=== PATIENT | male | born 1990 | race Caucasian/White ===

== ENCOUNTER 2016-07-31 08:23 | Emergency (ER) | payer SELFPAY ==
--- NOTE | 2016-07-31 08:32 | EDPHY ---
H & P Stated Complaint: n/v since 0500 daily thc use Time Seen by Provider: 07/31/16 08:32 HPI/ROS: CHIEF COMPLAINT: Vomiting, headache, abdominal cramping HISTORY OF PRESENT ILLNESS: The patient presents to the ED with complaints of vomiting, headache and abdominal cramping. The patient's symptoms all began at 5 o'clock this morning. The [place] The patient does report he is a daily marijuana user but denies prior history of cyclic vomiting syndrome. The patient denies any significant past medical history. He does have a history of appendectomy. The patient denies any alcohol use. The patient denies melena or hematemesis. Patient denies any recent history of fall or trauma. While he does complain of a headache he has no associated neurologic symptoms such as numbness, weakness or difficulties with speech or balance. REVIEW OF SYSTEMS: A comprehensive 10 point review of systems is otherwise negative aside from elements mentioned in the history of present illness. Source: Patient - Personal History Current Tetanus/Diphtheria Vaccine: Unsure - Medical/Surgical History Hx Asthma: No Hx Chronic Respiratory Disease: No Hx Diabetes: No Hx Cardiac Disease: No Hx Renal Disease: No Hx Cirrhosis: No Hx Alcoholism: No Hx HIV/AIDS: No Hx Splenectomy or Spleen Trauma: No Other PMH: appy - Social History Smoking Status: Never smoked - Physical Exam Exam: General Appearance: Alert, no distress Eyes: Pupils equal and round no pallor or injection ENT, Mouth: Mucous membranes moist Respiratory: There are no retractions, lungs are clear to auscultation Cardiovascular: Regular rate and rhythm Gastrointestinal: Abdomen is soft and nontender, no masses, bowel sounds normal Neurological: A&O, normal motor function, normal sensory exam, normal cranial nerves Skin: Warm and dry, no rashes Musculoskeletal: Neck is supple nontender Extremities: symmetrical, full range of motion Constitutional: Initial Vital Signs Temperature (C) 36.7 C 07/31/16 08:28 Heart Rate 82 07/31/16 08:28 Respiratory Rate 24 H 07/31/16 08:28 Blood Pressure 155/90 H 07/31/16 08:28 O2 Sat (%) 98 07/31/16 08:28 O2 Delivery Mode Room Air Allergies/Adverse Reactions: pinworm medecine Allergy (Uncoded 07/31/16 08:27) Home Medications: Medication Instructions Recorded Ondansetron Odt [Zofran Odt] 4 mg PO Q4PRN PRN #20 tab 07/31/16 Medical Decision Making - Diagnostics Imaging Results: Imaging Impressions Head CT 07/31/16 11:30 Impression: 1. Normal CT brain without contrast. 2. No subarachnoid hemorrhage or epidural/subdural hematomas. 3. No sinusitis. 4. Consider MRI of the brain without and with contrast enhancement, if there is continued clinical concern. Findings and recommendations discussed with Emergency Department physician, Andrzej Greenwood at 12:10 hour, 07/31/2016. Final report concurs with initial preliminary interpretation. Head CTA 07/31/16 11:30 Impression: Negative CT angiogram of the brain. Findings and recommendations discussed with Emergency Department physician, Dr. Andrzej Greenwood at 1211 hours on July 31, 2016. Final report concurs with initial preliminary interpretation. ED Course/Re-evaluation: The patient presents to the ED with complaints of abdominal cramping, vomiting, headache. The patient had an IV established. He received a L normal saline, IV Zofran and 1 mg of IV Ativan. The patient's laboratory studies do demonstrate a leukocytosis and mild acidosis likely secondary to dehydration and vomiting. The patient was re- evaluated by myself at 9:40 a.m.. His symptoms are improving. He continues to complain of a mild frontal headache. 30 mg of IV Toradol has been ordered. The patient's abdominal examination remains benign. Neurologically is intact without focal deficits. He has no clinical evidence of meningitis. The patient will receive an additional 1 L of normal saline. Patient was re-evaluated by myself at 11:00 p.m.. He continues to complain of an ongoing moderate to severe frontal headache. The patient was taken for a CT head given his ongoing headache vomiting which demonstrates no evidence of intracranial hemorrhage. Additionally he had a CT angiogram which demonstrates no evidence of aneurysm. The patient received an additional dose of IV Reglan and also received IV narcotic medications. The patient was re-evaluated at 12:30 p.m.. The patient reports his headache is currently 1/10. Patient looks quite well clinically. He continues to have no meningeal symptoms. I do not feel that a lumbar puncture is indicated based upon his current clinical state. I feel the patient's symptoms are likely a combination of likely dehydration in conjunction with altitude illness. I do feel the patient can manage his symptoms at home today. He will be given a prescription for Zofran. Tylenol and ibuprofen as needed for pain. The patient should return to the ED for any recurrent severe headache, focal neurologic symptoms, worsening symptoms or other concerns. Differential Diagnosis: Differential diagnosis considered includes altitude illness, pancreatitis, hepatitis, viral gastroenteritis, cyclic vomiting syndrome, metabolic abnormality - Data Points Laboratory Results: Laboratory Results 07/31/16 08:50 07/31/16 08:50 07/31/16 07/31/16 08:50 08:50 WBC 15.37 10^3/uL H 10^3/uL (3.80-9.50) RBC 5.60 10^6/uL 10^6/uL (4.40-6.38) Hgb 16.6 g/dL g/dL (13.7-17.5) Hct 46.0 % % (40.0-51.0) MCV 82.1 fL fL (81.5-99.8) MCH 29.6 pg pg (27.9-34.1) MCHC 36.1 g/dL g/dL (32.4-36.7) RDW 12.7 % % (11.5-15.2) Plt Count 218 10^3/uL 10^3/uL (150-400) MPV 10.8 fL fL (8.7-11.7) Neut % (Auto) 85.6 % H % (39.3-74.2) Lymph % (Auto) 10.1 % L % (15.0-45.0) Riley % (Auto) 3.5 % L % (4.5-13.0) Eos % (Auto) 0.1 % L % (0.6-7.6) Baso % (Auto) 0.3 % % (0.3-1.7) Nucleat RBC Rel Count 0.0 % % (0.0-0.2) Absolute Neuts (auto) 13.16 10^3/uL H 10^3/uL (1.70-6.50) Absolute Lymphs (auto) 1.55 10^3/uL 10^3/uL (1.00-3.00) Absolute Monos (auto) 0.54 10^3/uL 10^3/uL (0.30-0.80) Absolute Eos (auto) 0.02 10^3/uL L 10^3/uL (0.03-0.40) Absolute Basos (auto) 0.04 10^3/uL 10^3/uL (0.02-0.10) Absolute Nucleated RBC 0.00 10^3/uL 10^3/uL (0-0.01) Immature Gran % 0.4 % % (0.0-1.1) Immature Gran # 0.06 10^3/uL 10^3/uL (0.00-0.10) Sodium 141 mEq/L mEq/L (134-144) Potassium 5.1 mEq/L mEq/L (3.5-5.2) Chloride 107 mEq/L mEq/L (97-110) Carbon Dioxide 15 mEq/l L mEq/l (22-31) Anion Gap 19 mEq/L H mEq/L (8-16) BUN 14 mg/dL mg/dL (7-23) Creatinine 0.9 mg/dL mg/dL (0.7-1.3) Estimated GFR > 60 Glucose 134 mg/dL H mg/dL (70-100) Calcium 10.6 mg/dL H mg/dL (8.5-10.4) Total Bilirubin 1.7 mg/dL H mg/dL (0.1-1.4) Conjugated Bilirubin 0.6 mg/dL H mg/dL (0.0-0.5) Unconjugated Bilirubin 1.1 mg/dL mg/dL (0.0-1.1) AST 34 IU/L IU/L (17-59) ALT 31 IU/L IU/L (21-72) Alkaline Phosphatase 73 IU/L IU/L (38-126) Total Protein 8.9 g/dL H g/dL (6.3-8.2) Albumin 5.8 g/dL H g/dL (3.5-5.0) Lipase 168.0 IU/L IU/L (23-300) Specimen Hemolysis 158 Medications Given: Discontinued Medications Dexamethasone (Decadron Injection) 10 mg IVP EDNOW ONE Stop: 07/31/16 11:32 Last Admin: 07/31/16 11:43 Dose: 10 mg Sodium Chloride (Ns) 1,000 mls @ 0 mls/hr IV ONCE ONE; Wide Open PRN Reason: Protocol Stop: 07/31/16 08:37 Last Admin: 07/31/16 09:11 Dose: 1,000 mls Sodium Chloride (Ns) 1,000 mls @ 0 mls/hr IV ONCE ONE; Wide Open PRN Reason: Protocol Stop: 07/31/16 09:38 Last Admin: 07/31/16 09:38 Dose: 1,000 mls Ketorolac Tromethamine (Toradol) 30 mg IVP EDNOW ONE Stop: 07/31/16 09:39 Last Admin: 07/31/16 09:42 Dose: 30 mg Lorazepam (Ativan Injection) 1 mg IVP EDNOW ONE Stop: 07/31/16 08:38 Last Admin: 07/31/16 09:11 Dose: 1 mg Metoclopramide HCl (Reglan Injection) 10 mg IVP EDNOW ONE Stop: 07/31/16 11:32 Last Admin: 07/31/16 11:43 Dose: 10 mg Morphine Sulfate (Morphine) 4 mg IVP EDNOW ONE Stop: 07/31/16 11:30 Last Admin: 07/31/16 11:43 Dose: 4 mg Ondansetron HCl (Zofran) 4 mg IVP EDNOW ONE Stop: 07/31/16 08:37 Last Admin: 07/31/16 09:12 Dose: 4 mg Departure - Departure Disposition: Home, Routine, Self-Care Clinical Impression: Acute headache, Vomiting, Altitude illness Condition: Good Instructions: Acute Headache (ED) Additional Instructions: 1. Please return to the emergency department for worsening symptoms, fever, intractable vomiting or other concerns. 2. Please use Zofran as needed for nausea. Tylenol and ibuprofen as needed for pain. 3. I believe your symptoms today are likely a combination of altitude, possible dehydration and potentially a viral illness. In the event of any progressive or worsening symptoms it is imperative you return to the ED immediately as this may be the sign of a more serious and undiagnosed condition. All testing performed in the emergency department today including blood work and CT scans demonstrate no evidence of significant disease. Referrals: NONE *PRIMARY CARE P,. [Primary Care Provider] - As per Instructions
[2016-07-31] MEDS ORDERED: ONDANSETRON 4 MG/2 ML VIAL IVP ONE (08:36)
[2016-07-31] MEDS ORDERED: NS 1,000 ML IV ONE ×2 (08:36→09:37)
[2016-07-31] MEDS ORDERED: LORazepam 2 MG/ML INJ IVP ONE (08:37)
[2016-07-31 09:04] LABS: % IMMATURE GRANULYOCYTES 0.4 % (0.0-1.1); ABSOLUTE IMMATURE GRANULOCYTES 0.06 10^3/uL (0.00-0.10); ADD DIFF? NO; ADD MORPH? NO; ADD SCAN? NO; ATYPICAL LYMPHOCYTE FLAG 0 (0-99); FRAGMENT RBC FLAG 0 (0-99); HEMOGLOBIN 16.6 g/dL (13.7-17.5); LEFT SHIFT FLG 10 (0-99); LIPEMIA HEMOLYSIS FLAG 90 (0-99); MEAN CELL HEMOGLOBIN 29.6 pg (27.9-34.1); MEAN CELL HEMOGLOBIN CONCENTR. 36.1 g/dL (32.4-36.7); MEAN CELL VOLUME 82.1 fL (81.5-99.8); MEAN PLATELET VOLUME 10.8 fL (8.7-11.7); PLATELET CLUMPS FLAG 90 (0-99); PLATELET COUNT 218 10^3/uL (150-400); RED CELL DISTRIBUTION WIDTH 12.7 % (11.5-15.2)
[2016-07-31 09:23] LABS: ALANINE AMINOTRANSFERASE 31 IU/L (21-72); ALBUMIN 5.8 g/dL (3.5-5.0); ALKALINE PHOSPHATASE 73 IU/L (38-126); ANION GAP 19 mEq/L (8-16); ASPARTATE AMINOTRANSFERASE 34 IU/L (17-59); BILIRUBIN,TOTAL 1.7 mg/dL (0.1-1.4); BILIRUBIN-CONJUGATED 0.6 mg/dL (0.0-0.5); BILIRUBIN-UNCONJUGATED 1.1 mg/dL (0.0-1.1); CALCIUM 10.6 mg/dL (8.5-10.4); CARBON DIOXIDE 15 mEq/l (22-31); CHLORIDE 107 mEq/L (97-110); CREATININE 0.9 mg/dL (0.7-1.3); GLOMERULAR FILTRATION RATE > 60; GLUCOSE 134 mg/dL (70-100); POTASSIUM 5.1 mEq/L (3.5-5.2); SODIUM 141 mEq/L (134-144); SPECIMEN HEMOLYSIS 158; TOTAL PROTEIN 8.9 g/dL (6.3-8.2)
[2016-07-31] MEDS ORDERED: KETOROLAC 30 MG/1 ML SDV IVP ONE (09:38)
[2016-07-31] MEDS ORDERED: METOCLOPRAMIDE 10 MG/2 ML VIAL IVP ONE (11:31)
[2016-07-31] MEDS ORDERED: DEXAMETHASONE 10 MG/ML VIAL IVP ONE (11:31)
[2016-07-31] MEDS ORDERED: IOPAMIDOL (ISOVUE 370) 100 ML BTL IV ONE (11:38)
[2016-07-31 11:44] VITALS: RESP 16
[2016-07-31 13:06] VITALS: BP 122/67; PULSE 81; TEMP 97.9; O2SAT 95
== END 2016-07-31 13:00 | disposition home or self-care (01) ==
DX: R11.10 Vomiting, unspecified (principal); R51 Headache; T70.29XA Other effects of high altitude, initial encounter
CPT/HCPCS: 96374; J1885; J2060; J2405; J2765; Q9967